=== PATIENT | female | born 1970 | race Caucasian/White ===

== ENCOUNTER 2025-05-26 19:05 | Emergency (ER) | payer OTHER, SELFPAY ==
[2025-05-26 19:11] VITALS: BP 111/69
--- NOTE | 2025-05-26 19:17 | ED.GENMED ---
ED Provider Triage
<Karen Nielson PA-C - Last Filed: 05/29/25 06:25>
-
Patient seen by provider in Triage?: Seen in Triage
Attestation: A medical screening examination has been initiated by a qualified medical provider. Based on the assessment performed at this time, it has been determined that an emergent medical condition may exist and the patient has been informed
that further medical evaluation and possible additional diagnostic testing may be needed.
HPI: 54yoF here with abd pain x 3 days. Started in LLQ, now mostly RLQ. Also c/o nausea, constipation, dizziness. Hx of cholecystectomy and hysterectomy. Sent in by PCP.
GENERAL: Alert , in no apparent distress
EYE: No visual abnormalities.
NECK: Trachea midline
ENT: No visible abnormalities.
LUNGS: No acute respiratory distress
NEUROLOGICAL: Alert and oriented
SKIN: Skin intact. No visible changes.
MUSCULOSKELETAL: Moving extremities normally
PSYCH: Normal and appropriate interaction.
This is a medical evaluation conducted in person to initiate diagnostic evaluation and provide initial therapeutics. Please see further documentation by the treating clinician.
Abdominal labs, EKG, UA, and CT abdomen with IV/PO contrast.
History of Present Illness
<Karen Nielson PA-C - Last Filed: 05/29/25 06:25>
General
Chief Complaint: Abdominal Pain
Time Seen by Provider: 05/27/25 00:25
<Tram Bain MD - Last Filed: 05/27/25 01:55>
General
Source: patient
History of Present Illness
History of Present Illness:
54-year-old female with a history of gluten sensitivity states that she had Brazilian fries on Monday and just has not felt right ever since. She woke in the middle the night a couple of times with 'sharp' generalized abdominal discomfort but went
back to bed. When she woke on Monday morning she noted abrupt abdominal discomfort greatest on the left lower side. She thought she might be constipated. She noted the pain was better if she would curl into a ball or lay on her left side and
increased when she would stand or walk described as a 'pulling' sensation. She denies associated fever, chills, vomiting, urinary symptoms. She does have intermittent nausea. On Monday, she developed several episodes of 'watery' diarrhea. This
is since resolved. She notes pain seems to be worse when she eats solids. She did tolerate chicken broth without difficulty today. The pain is now noted to be intermittent, and more so on the right compared to the left. She has not had any bowel
movements today. Of note, patient did feel slightly lightheaded when she stood up, consistent with her prior history of orthostatic hypotension as per patient
Past History
<Tram Bain MD - Last Filed: 05/27/25 01:55>
Past History
ED Past Medical History: None
ED Past Surgical History: Cholecystectomy, and Other (TMJ, hernia)
Social History
Tobacco: Non-smoker
Alcohol: None
Drug: None
Phy Exam
<Tram Bain MD - Last Filed: 05/27/25 01:55>
Physical Exam
Physical Exam:
GENERAL: Alert , in no apparent distress
EYE: pupils equal and reactive
NECK: Supple, no significant adenopathy.
ENT: o/p clr, mmm.
CARDIAC: Regular rate and rhythm .
LUNGS: Clear breath sounds bilaterally, no acute respiratory distress, no wheezes/rales/rhonchi
ABDOMEN: Soft, right lower quadrant greater than right mid and left lower quadrant tenderness, no r/g, no cvat
NEUROLOGICAL: Alert and oriented, no focal neuro deficits
SKIN: Warm and dry, skin intact.
MUSCULOSKELETAL: No edema, well perfused.
PSYCH: Normal and appropriate interaction.
Course
<Karen Nielson PA-C - Last Filed: 05/29/25 06:25>
Orders/Labs/Results
Orders:
Orders
05/26/25 19:23
Electrocardiogram (*1) Urgent
Reason for Study: Abdominal Pain
EKG- Treatment ONCE
Iohexol [Omnipaque] See Protocol PO NOW STA
Ondansetron Orally Disint [Zofran Odt (Orally Disintegrating)] 4 mg PO NOW STA
05/26/25 19:34
Complete Blood Count/With Diff Urgent
Comprehensive Metabolic Panel Urgent
Lipase Urgent
Urinalysis Reflex To Culture Urgent
Date Specimen was Collected: 05/26/25
Time Specimen was Collected: 19:33
05/27/25
CT Abd/pel W Iv And Oral Contr Urgent
Reason For Exam: RLQ pain
Abnormal Lab Results
05/26/25
19:34
Absolute Lymphs (auto) 3.6 H 10^3/uL
(1.2-3.4)
Glucose 100 H mg/dl
(70-99)
05/26/25 19:34
05/26/25 19:34
Vital Signs
Initial and Last Documented VS:
Initial Vital Signs
Temp Pulse Resp BP Pulse Ox
98.0 F 89 16 111/69 99
05/26/25 19:11 05/26/25 19:11 05/26/25 19:11 05/26/25 19:11 05/26/25 19:11
Last Documented Vital Signs
Temp Pulse Resp BP Pulse Ox
98.0 F 69 16 92/64 99
05/26/25 19:11 05/27/25 02:15 05/27/25 02:15 05/27/25 02:15 05/27/25 02:15
<Tram Bain MD - Last Filed: 05/27/25 01:55>
Orders/Labs/Results
Orders:
Orders
05/26/25 19:23
Electrocardiogram (*1) Urgent
Reason for Study: Abdominal Pain
EKG- Treatment ONCE
Iohexol [Omnipaque] See Protocol PO NOW STA
Ondansetron Orally Disint [Zofran Odt (Orally Disintegrating)] 4 mg PO NOW STA
05/26/25 19:34
Complete Blood Count/With Diff Urgent
Comprehensive Metabolic Panel Urgent
Lipase Urgent
Urinalysis Reflex To Culture Urgent
Date Specimen was Collected: 05/26/25
Time Specimen was Collected: 19:33
05/27/25
CT Abd/pel W Iv And Oral Contr Urgent
Reason For Exam: RLQ pain
Abnormal Lab Results
05/26/25
19:34
Absolute Lymphs (auto) 3.6 H 10^3/uL
(1.2-3.4)
Glucose 100 H mg/dl
(70-99)
05/26/25 19:34
05/26/25 19:34
Vital Signs
Initial and Last Documented VS:
Initial Vital Signs
Temp Pulse Resp BP Pulse Ox
98.0 F 89 16 111/69 99
05/26/25 19:11 05/26/25 19:11 05/26/25 19:11 05/26/25 19:11 05/26/25 19:11
Last Documented Vital Signs
Temp Pulse Resp BP Pulse Ox
98.0 F 69 16 92/64 99
05/26/25 19:11 05/27/25 02:15 05/27/25 02:15 05/27/25 02:15 05/27/25 02:15
<Karen Nielson PA-C - Last Filed: 05/29/25 06:25>
*Pulse Oximetry
SaO2: 99
Oxygen Mode of Delivery: Room air
<Tram Bain MD - Last Filed: 05/27/25 01:55>
Update Note
Update Note:
Patient presents to the Emergency Department with ___abdominal pain, diarrhea
Number and Complexity of Problems Addressed at the Encounter
� Chronic conditions affecting care:
� Acute Exacerbation and/or Progression of Chronic Illness:
� Differential Diagnosis includes: But not limited to infectious colitis, Crohn's, ulcerative colitis, appendicitis, diverticulitis, kidney stone, etc. etc.
Amount and/or Complexity of Data to be Reviewed and Analyzed
� I performed an independent evaluation of and my interpretation is:
EKG:
CT: Vision report read by me 'segment of ileal small bowel wall thickening and inflammatory change in the right lower quadrant consistent with acute ileitis. This may be infectious, inflammatory or less likely ischemic in
nature. Appendix is normal. No bowel obstruction. Cholecystectomy. Hysterectomy. Small pericardial effusion. Indeterminate 11 mm hypodense right hepatic lobe lesion near the IVC. Indeterminate subcentimeter hypodense lesion in the left
hepatic lobe. Bilateral adrenal nodules, indeterminate '
Xrays:
Laboratory Studies: Generally unremarkable
Other:
� Review of other/old records reveals:
� Clinical information was obtained by an independent historian:
� Prescriptions/Medications Considered but not given:
� Further testing considered but not performed:
Risk of Complications and/or Morbidity or Mortality of Patient Management
� Social determinants of health affecting care:
� Discussion with other providers (PCP, Hospitalists, Consultants, etc):
� Escalation of care including admission/observation vs risk of discharge considered: CT consistent with ileitis. Patient does not have a prior history of Crohn's disease, no prior history of heavy nonsteroidal use. Is
difficult to ascertain whether or not this is related to infectious etiology although I think this is far less likely. No fever, sick contacts, recent travel, leukocytosis. Pain/tenderness is minimal. Patient no longer has diarrhea and therefore
we cannot check a stool sample. Most important patient will need close GI follow-up not only for ileitis but also for other findings including the hepatic lesions which I made patient aware of and the importance of follow-up regarding.
ED Attending Note
<Karen Nielson PA-C - Last Filed: 05/29/25 06:25>
-
Portions of this chart may have been created with voice recognition software.� Occasional wrong word or��sound alike� substitutions may have occurred due to the inherent limitations of voice recognition software.
Discharge Plan
Departure
Patient Disposition: Home (Routine Discharge)
Date of Disposition: 05/27/25
Time of Disposition: 01:53
Patient with high blood pressure during this ER visit?: No
Condition: Good
Discharge Problem:
Ileitis
Instructions: Abdominal Pain
Referrals:
Chong Rogers MD [Active, Gastroenterology] - Next open appointment
Activity Restrictions/Additional Instructions:
YOU HAVE FINDINGS ON YOUR CAT SCAN THAT REQUIRE CLOSE FOLLOW-UP INCLUDING ILEITIS AND HEPATIC LESIONS. PLEASE FOLLOW-UP WITH A GI DOCTOR PROMPTLY IF YOU DEVELOP FEVER, CHILLS, VOMITING, RECURRENT DIARRHEA, BLEEDING, INCREASING NEW OR PERSISTENT
PAIN, GET WORSE, DO NOT GET BETTER, OR OTHER WORRISOME SIGNS, PLEASE RETURN TO THE ER IMMEDIATELY!.
Interventions
Interventions:
*Risk Screen - Suicide Last Done: 05/27/25 00:15
*General Assessment Last Done: 05/27/25 00:15
*Neglect/Abuse Screening Last Done: 05/27/25 00:15
*ED- Fall Risk Assessment Last Done: 05/27/25 00:15
*ED COVID-19 Vaccine History Last Done: 05/27/25 00:15
*Nursing Disposition Last Done: 05/27/25 02:15
KX-Bbggge-Rgrtzczvhw Assessment Last Done: 05/27/25 00:15
Discharge Date and Time
Discharge Date/Time: 05/27/25 02:15
Print Language: [place]
[2025-05-26] MEDS: OMNIPAQUE 50 ML PO (19:31)
[2025-05-26] MEDS: ZOFRAN ODT (ORALLY DISINTEGRATING) 4 MG PO (19:31)
[2025-05-26 19:46] LABS: Hematocrit 44.7 % (37.0-47.0); Hemoglobin 15.0 g/dL (12.0-16.0); Mean Corp Hgb Conc. 33.6 g/dL (33.0-37.0); Mean Corpuscular Volume 84.7 fL (81.0-99.0); Nucleated Red Blood Cells % 0 %; Platelet Count 302 10^3/uL (130-400); Red Cell Dist. Width 12.8 % (11.5-14.5)
[2025-05-26 19:49] LABS: Urine Character Clear (Clear)
[2025-05-26 20:09] LABS: ALT (SGPT) 14 U/L (0-35); AST (SGOT) 20 U/L (14-36); Albumin 4.5 g/dl (3.5-5.0); Alkaline Phosphatase 64 U/L (38-126); Blood Urea Nitrogen 10 mg/dl (7-17); Calcium 9.0 mg/dl (8.4-10.2); Carbon Dioxide 27 mmol/L (22-30); Chloride 105 mmol/L (98-107); Glucose 100 mg/dl (70-99); Potassium 4.2 mmol/L (3.5-5.1); Sodium 138 mmol/L (135-145); Total Protein 7.2 g/dl (6.3-8.2); eGFR > 60.00
[2025-05-26 20:10] LABS: Lipase 130 U/L (23-300)
[2025-05-27 00:15] VITALS: BMI 24.5
[2025-05-27 00:26] VITALS: BP 90/68
[2025-05-27 02:15] VITALS: BP 92/64
== END 2025-05-27 02:15 | disposition home or self-care (01) ==
LOC: EMR 19:05
PROVIDERS: Physician Assistant; EMERGENCY PHYSICIAN Emergency Medicine; FAMILY PHYSICIAN Nurse Practitioner Family
DX: K52.9 Noninfective gastroenteritis and colitis, unspecified (principal); K59.00 Constipation, unspecified; Z90.49 Acquired absence of other specified parts of digestive tract
CPT/HCPCS: 99284; 74177; 80053; 81003; 83690; 85025; 93005; Q9967

== ENCOUNTER 2025-08-30 18:59 | Emergency (ER) | payer OTHER, SELFPAY ==
[2025-08-30 19:01] VITALS: BP 105/65
--- NOTE | 2025-08-30 19:12 | ED.GENMED ---
History of Present Illness
General
Chief Complaint: Breathing Problem
Source: patient
Exam Limitations: none
Time Seen by Provider: 08/30/25 19:12
History of Present Illness
History of Present Illness:
54yoF with no significant past medical history presenting for evaluation of URI symptoms. Patient has been sick for the past 5 days with cough and congestion. She has also been experiencing chest tightness. She was seen by her PCP 3 days ago and
had negative strep testing. She was scheduled to have an appointment with her doctor to obtain work clearance but this was canceled so she went to urgent care. She had a chest x-ray at urgent care which was normal. She was told to go to the ED
for concern for a pulmonary embolism. 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 She denies any leg swelling, calf pain, recent travel, tobacco use, or history of VTE.
Past History
Past History
ED Past Medical History: None
ED Past Surgical History: Cholecystectomy, and Other (TMJ, hernia)
Social History
Tobacco: Non-smoker
Alcohol: None
Drug: None
Phy Exam
General Physical Exam
General Presentation: well appearing and no apparent distress
General age: appears stated age
General Skin: warm and dry
General Habitus: normal
General Mental: alert
ENT Exam
ENT Exam: normocephalic
Cardiovascular Exam
Cardiovascular Exam: regular rate/rhythm, no edema and no murmur
Pulmonary Exam
Pulmonary Exam: lungs clear, no respiratory distress, no rales, no crackles, no rhonchi and no wheezing
Neurological Exam
Neurological Exam: alert
[place] Coma Scale
Eye Opening: Spontaneous
Verbal Response: Oriented
Motor Response: Obeys Commands
GCS Total Score: 15
Skin Exam
Skin Exam: normal color and warm/dry
Psychiatric Exam
Psychiatric Exam: normal mood/affect
Scores
Heart Failure Risk
Heart Failure Risk Score: Not Applicable
PE Wells Score
Symptoms of DVT: No
No alternative diagnosis better explains the illness: No
Tachycardia with pulse > 100: No
Immobilization (>=3 days) or surgery within previous 4 weeks: No
Prior history of DVT or pulmonary embolism: No
Presence of hemoptysis: No
Presence of malignancy: No
Pulmonary Embolism Risk Score: 0
Probability of PE: Pt is low risk
Course
Orders/Labs/Results
Orders:
Orders
08/30/25 19:05
EKG [Electrocardiogram (*1)] Urgent
Reason for Study: Shortness of Breath
EKG- Treatment ONCE
08/30/25 19:20
Cardiac Monitoring- Treatment ONCE
08/30/25 19:26
COVID-19 Antigen Urgent
Source: Nasal Swab
Complete Blood Count/With Diff Urgent
Comprehensive Metabolic Panel Urgent
Troponin I Urgent
Influenza A+B Rapid Molecular Urgent
GREGORY Source: Nasal Swab
Specimen Description:
Abnormal Lab Results
08/30/25
19:26
MCHC 32.6 L g/dL
(33.0-37.0)
Absolute Lymphs (auto) 3.8 H 10^3/uL
(1.2-3.4)
Carbon Dioxide 32 H mmol/L
(22-30)
ALT 45 H U/L
(0-35)
08/30/25 19:26
08/30/25 19:26
Vital Signs
Initial and Last Documented VS:
Initial Vital Signs
Temp Pulse Resp BP Pulse Ox
97.7 F 80 20 105/65 98
08/30/25 19:01 08/30/25 19:01 08/30/25 19:01 08/30/25 19:01 08/30/25 19:01
Last Documented Vital Signs
Temp Pulse Resp BP Pulse Ox
97.7 F 74 16 93/58 97
08/30/25 19:01 08/30/25 20:15 08/30/25 20:15 08/30/25 20:00 08/30/25 20:15
MDM/Problems Addressed
Differential Diagnosis Includes:
54yoF here with URI symptoms x 5 days. Went to urgent care to get a work note. Mentioned chest tightness and she was sent to the ED for concern for a PE. Patient well appearing in no distress. Lungs CTA. Differential diagnosis includes: URI,
bronchitis, pneumonia, viral illness, doubt but consider viral myocarditis
Initial ED plan: She has no risk factors for PE. Oxygen saturation 100% during initial exam and HR in the 70s. No calf tenderness or edema. Very low clinical suspicion for PE. 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 CXR
at urgent care was normal. Will check cardiac labs, EKG, and COVID/flu testing.
*Pulse Oximetry
SaO2: 98
Oxygen Mode of Delivery: Room air
Patient hypoxic: no
*EKG
Interpreted by ED Provider?: Yes
EKG Intrepretation Date: 08/30/25
Heart Rate: 69
Rate: normal
Rhythm: sinus
[place]: normal axis
Interval: normal interval
QRS Pattern: normal QRS
Ischemia: no ischemia
*Critical Care Note
Total Time (30-74mins, 75-104mins- exclusive of procedures): Not Applicable
Update Note
Update Note:
Labs overall unremarkable including undetectable troponin. Viral testing negative. Patient remains well-appearing on reassessment and vitals are stable. BP 93/58 which patient states is baseline for her. Presentation consistent with bronchitis.
Supportive care discussed and work note provided. Patient advised to follow-up with her PCP and ED return precautions reviewed. She was discharged in stable condition.
ED Attending Note
-
Portions of this chart may have been created with voice recognition software.� Occasional wrong word or��sound alike� substitutions may have occurred due to the inherent limitations of voice recognition software.
Discharge Plan
Departure
Patient Disposition: Home (Routine Discharge)
Date of Disposition: 08/30/25
Time of Disposition: 20:16
Patient with high blood pressure during this ER visit?: No
Discharge Problem:
Acute bronchitis
Instructions: Acute Bronchitis, Adult (DC)
Referrals:
Ananda Newsome CRNP [Family Provider, General]
Stand Alone Forms: Return to Work
Activity Restrictions/Additional Instructions:
Drink plenty of fluids and rest. Use honey, humidifier, and Adolfo's vapor rub for cough. Continue using Mucinex for congestion.
Please follow-up with your family doctor. Return to the ER with any new or worsening symptoms.
Interventions
Interventions:
*Risk Screen - Suicide Last Done: 08/30/25 19:01
*General Assessment Last Done: 08/30/25 19:01
*Neglect/Abuse Screening Last Done: 08/30/25 19:01
*ED- Fall Risk Assessment Last Done: 08/30/25 19:01
*ED COVID-19 Vaccine History Last Done: 08/30/25 19:30
*ED Influenza Vaccine History Last Done: 08/30/25 19:30
*Nursing Disposition Last Done: 08/30/25 20:27
ED- Cardiac Assessment Last Done: 08/30/25 19:30
ED- Pulmonary Assessment Last Done: 08/30/25 19:30
Discharge Date and Time
Discharge Date/Time: 08/30/25 20:27
Print Language: SWEDISH
[2025-08-30 19:17] VITALS: BP 97/64
[2025-08-30 19:38] LABS: Hematocrit 40.2 % (37.0-47.0); Hemoglobin 13.1 g/dL (12.0-16.0); Mean Corp Hgb Conc. 32.6 g/dL (33.0-37.0); Mean Corpuscular Volume 87.8 fL (81.0-99.0); Nucleated Red Blood Cells % 0 %; Platelet Count 282 10^3/uL (130-400); Red Cell Dist. Width 13.0 % (11.5-14.5)
[2025-08-30 19:47] LABS: COVID-19 Antigen Negative (Negative)
[2025-08-30 19:50] LABS: ALT (SGPT) 45 U/L (0-35); AST (SGOT) 35 U/L (14-36); Albumin 4.1 g/dl (3.5-5.0); Alkaline Phosphatase 89 U/L (38-126); Blood Urea Nitrogen 10 mg/dl (7-17); Calcium 9.0 mg/dl (8.4-10.2); Carbon Dioxide 32 mmol/L (22-30); Chloride 101 mmol/L (98-107); Glucose 85 mg/dl (70-99); Potassium 3.8 mmol/L (3.5-5.1); Sodium 138 mmol/L (135-145); Total Protein 7.0 g/dl (6.3-8.2); eGFR > 60.00
[2025-08-30 20:00] VITALS: BP 93/58
[2025-08-30 20:01] LABS: Troponin I < 0.012 ng/ml
== END 2025-08-30 20:27 | disposition home or self-care (01) ==
LOC: EMR 18:59
PROVIDERS: Physician Assistant; EMERGENCY PHYSICIAN Emergency Medicine; FAMILY PHYSICIAN Nurse Practitioner Family
DX: J20.9 Acute bronchitis, unspecified (principal); Z90.49 Acquired absence of other specified parts of digestive tract; Z11.52 Encounter for screening for COVID-19
CPT/HCPCS: 99284; 80053; 84484; 85025; 87502; 87811; 93005